=== PATIENT | male | born 1985 ===

== ENCOUNTER 2017-11-07 02:00 | Inpatient (IN) | payer SELFPAY ==
--- NOTE | 2017-11-07 02:50 | C.PDOC ---
History Of Present Illness The patient is brought to the ED by EMS for psychiatric evaluation after he was found acting bizarre and reported auditory hallucinations earlier today. Patient has no physical complaints at this time. Time Seen by Provider: 11/07/17 02:49 Chief Complaint (Nursing): Psychiatric Evaluation History Per: Patient, EMS History/Exam Limitations: no limitations Onset/Duration Of Symptoms: Days (2) Current Symptoms Are (Timing): Still Present Suicide/Self Injury Attempted (Context): None Modifying Factor(s): None Severity: None Pain Scale Rating Of: 0 Associated Symptoms: Other (auditory hallucinations ) Involuntary Hold By: None Recent travel outside of the [place]: No Additional History Per: Patient, EMS Past Medical History Reviewed: Historical Data, Nursing Documentation, Vital Signs Vital Signs: Last Vital Signs Temp 97.9 F 11/07/17 05:18 Pulse 94 H 11/07/17 05:18 Resp 18 11/07/17 05:18 BP 131/81 11/07/17 05:18 Pulse Ox 98 11/07/17 05:18 - Medical History PMH: Schizophrenia Surgical History: No Surg Hx Family History: States: Unknown Family Hx - Social History Hx Alcohol Use: Yes Hx Substance Use: No (denies) - Immunization History Hx Tetanus Toxoid Vaccination: No Hx Influenza Vaccination: No Hx Pneumococcal Vaccination: No Review Of Systems Constitutional: Negative for: Fever, Chills Cardiovascular: Negative for: Chest Pain, Palpitations Respiratory: Negative for: Cough, Shortness of Breath Gastrointestinal: Negative for: Nausea, Vomiting, Abdominal Pain Skin: Negative for: Rash, Lesions, Jaundice, Bruising Neurological: Negative for: Weakness, Numbness Psych: Positive for: Other (auditory hallucinations ) Physical Exam - Physical Exam Appears: Non-toxic, No Acute Distress Skin: Warm, Dry Head: Normacephalic Chest: Symmetrical, No Deformity, No Tenderness Cardiovascular: Rhythm Regular, No Murmur Respiratory: No Accessory Muscle Use Extremity: Normal ROM Neurological/Psych: Oriented x3, Other (bizarre affect ) Gait: Steady ED Course And Treatment - Laboratory Results Result Diagrams: 11/07/17 03:02 11/07/17 03:02 ECG: Interpreted By Me, Viewed By Nv ECG Rhythm: Sinus Rhythm (102), Nonspecific Changes O2 Sat by Pulse Oximetry: 99 (on RA) Pulse Ox Interpretation: Normal - Radiology CXR: Interpreted by Me CXR Interpretation: No: Infiltrates, Fracture, Pnemothorax Progress Note: Bloodwork and UA ordered and reviewed. Disposition Counseled Patient/Family Regarding: Studies Performed, Diagnosis - Disposition Disposition Time: 02:50 Condition: FAIR Forms: [facility] (Maori) - Clinical Impression Clinical Impression: Schizophrenia - Scribe Statement The provider has reviewed the documentation as recorded by the Scribe (Cristy Sanchez) Provider Attestation: All medical record entries made by the Scribe were at my direction and personally dictated by me. I have reviewed the chart and agree that the record accurately reflects my personal performance of the history, physical exam, medical decision making, and the department course for this patient. I have also personally directed, reviewed, and agree with the discharge instructions and disposition. Physician Patient Turnover Patient Signed Over To: Talia Szymanski Handoff Comments: [place] [facility]
[2017-11-07 03:05] LABS: BASO # 0.1 K/uL (0.0-0.2); BASO % 0.5 % (0.0-2.0); EOS % 0.2 % (0.0-4.0); HEMATOCRIT 46.3 % (35.0-51.0); LYMPH # 1.4 K/uL (1.0-4.3); LYMPH % 10.1 % (20.0-40.0); MEAN CELL VOLUME 86.5 fL (80.0-94.0); MEAN CORPUSCULAR HEMOGLOBIN 30.3 pg (27.0-31.0); MEAN PLATELET VOLUME 9.3 fL (7.2-11.7); MONO # 1.1 K/uL (0.0-0.8); MONO % 8.2 % (0.0-10.0); RED CELL DISTRIBUTION WIDTH 12.1 % (11.5-14.5); WHITE BLOOD COUNT 13.5 K/uL (4.8-10.8)
[2017-11-07 03:17] LABS: ALB/GLOB RATIO 1.8 (1.0-2.1); ALCOHOL SERUM < 10 mg/dl (0-10); ALKALINE PHOSPHATASE 59 U/L (38-126); ALT/SGPT 91 U/L (21-72); AST/SGOT 183 U/L (17-59); BILIRUBIN,TOTAL 3.3 mg/dL (0.2-1.3); BLOOD UREA NITROGEN 9 mg/dL (9-20); CALCIUM 8.4 mg/dl (8.6-10.4); CARBON DIOXIDE 23 mmol/L (22-30); CHLORIDE 99 mmol/L (98-107); GFR AFRICAN-AMERICAN > 60; GLUCOSE,RANDOM 97 mg/dL (75-110); POTASSIUM 3.1 mmol/L (3.6-5.2); SODIUM 136 mmol/L (132-148); TOTAL PROTEIN 6.7 g/dL (6.3-8.3)
[2017-11-07 03:30] LABS: RBC URINE 1 /hpf (0-3); URINE BILIRUBIN NEGATIVE (NEGATIVE); URINE BLOOD NEGATIVE (NEGATIVE); URINE COLOR Yellow (YELLOW); URINE GLUCOSE (UA) NORMAL (Normal); URINE KETONE 1+ mg/dL (NEGATIVE); URINE LEUKOCYTE ESTERASE NEG Leu/uL (Negative); URINE PROTEIN 1+ mg/dL (NEGATIVE); URINE UROBILINOGEN NORMAL mg/dL (0.2-1.0); WBC URINE 1 /hpf (0-5)
[2017-11-07] MEDS ORDERED: Potassium Chloride 10 mEq ER Tab PO STA (05:15)
[2017-11-07] MEDS ORDERED: Potassium Chloride 10 mEq ER Tab PO ONE (05:22)
--- NOTE | 2017-11-07 08:25 | RAD ---
Chest x-ray single frontal view History: Psychiatric clearance. Comparison: None available. Findings: Mild patchy increased markings in the right infrahilar region which may represent confluence of vasculature/vessels. Clinical correlation. Heart size within normal limits. Osseous structures are preserved. Impression: Mild patchy increased markings in the right infrahilar region which may represent confluence of vasculature/vessels. Clinical correlation.
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
[2017-11-07] MEDS: Divalproex 500 mg DR Tab PO SCH ×2 (11:45→17:35)
[2017-11-07] MEDS ORDERED: DiphenhydrAMINE 50 mg/ml Inj IM PRN (12:00)
--- NOTE | 2017-11-07 14:19 | PCM.BM ---
<Kirsten Chen - Last Filed: 11/07/17 14:16> Treatment Plan Problems - Problems identified on initial assessmt Problem 1 Date Initiated: 11/07/17 Time Initiated: 14:17 Assessment reference: NA Status: Active Treatment assets and liabiliti Patient Assests: self-reliant, ADL independent, physically healthy Patient Liabilities: financial problems, poor support system, substance abuse - Milieu Protocol Maintain good personal hygiene: daily Encourage regular showers, daily Remind patient to perform daily oral care, daily Assist patient to perform ADL's Maintain personal safety: daily Educate patient to report safety concerns to staff, daily Monitor environment for contraband/sharps Medication safety: Monitor for expected outcome, potential side effects: daily, Assess barriers to learning: daily, Assess readiness for medication education: daily Milieu Narrative: 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 Schizophrenia paranoid type chronic CBT Psychoeducation Supportive therapy, individual therapy Start Haldol 5 mg po BID Start Cogentin 1 mg PO BID Start Depakote 500 mg PO BID Klonopin 1 mg PO TID Start Trazodone 50 mg PO Q HS Cannabis use disorder severe CBT Psychoeducation Supportive therapy, individual therapy Use [place] for abstinence Hallucinogen (Mushroom) use disorder severe CBT Psychoeducation Supportive therapy, individual therapy Use [place] for abstinence Discharge/Continuing Care - Treatment Team Participation Patient/Family/SO Statement: 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 Schizophrenia paranoid type chronic CBT Psychoeducation Supportive therapy, individual therapy Start Haldol 5 mg po BID Start Cogentin 1 mg PO BID Start Depakote 500 mg PO BID Klonopin 1 mg PO TID Start Trazodone 50 mg PO Q HS Cannabis use disorder severe CBT Psychoeducation Supportive therapy, individual therapy Use [place] for abstinence Hallucinogen (Mushroom) use disorder severe CBT Psychoeducation Supportive therapy, individual therapy Use [place] for abstinence <MessiJohnnygretchen - Last Filed: 11/08/17 11:26> - Diagnosis (1) Schizophrenia, paranoid type Status: Acute Interventions: 11/08/17 11:22 * Assess/adjust medications daily and /or as needed * See patient on an individual basis 7x/week to assess status of hallucinations * Discuss risks, benefits, side effects and alternatives of medications * (2) Cannabis use disorder, severe, dependence Status: Acute Interventions: 11/08/17 11:25 * Assess 7x/week regarding severity of withdrawal * Educate regarding risks, benefits, side effects and alternatives of medications * Use Motivational Interviewing for abstinence * Use CBT for relapse prevention * Medication management for withdrawal symptoms * Encourage medication assisted treatment * (3) Hallucinogenic mushrooms use disorder, severe Status: Acute Interventions: 11/08/17 11:26 * Assess 7x/week regarding severity of withdrawal * Educate regarding risks, benefits, side effects and alternatives of medications * Use Motivational Interviewing for abstinence * Use CBT for relapse prevention * Medication management for withdrawal symptoms * Encourage medication assisted treatment *
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
[2017-11-08] MEDS: Divalproex 500 mg DR Tab PO SCH ×2 (09:45→18:00)
--- NOTE | 2017-11-08 10:32 | PCM.PYCHPN ---
Psychiatric Progress Note - Psychiatric Progress Note Patient seen today, length of contact: 16 min Patient Chief Complaint: They are following me.' Problems Identified/Issues Discussed: Patient seen and evaluated, chart reviewed and discussed with the nurse. Patient remained disorganized and internally preoccupied. He still reports of hearing voices. Patient still appears paranoid and delusional. He reports improvement in hs mood, however he remained on 1:1 b/c of paranoid behavior. Patient remained isolated, confined and withdrawn. Patient is compliant with medications and denies any side effects. Symptoms are improving but need more time to stabilize. Support and psychoeducation given. Medication Change: Yes Medical Record Reviewed: Yes Mental Status Examination - Cognitive Function Orientation: Person, Place, Situation, Time Memory: Intact Attention: WNL Concentration: Poor Association: Loose Fund of Knowledge: Poor - Mood Mood: Anxious - Affect Affect: Broad - Speech Speech: Soft - Formal Thought Process Formal Thought Process: Hallucinations, Delusions, Paranoia, Loosening of associations, Flight of ideas, Circumstantial - Suicidal Ideation Suicidal Ideation: No - Homicidal Ideation Homicidal Ideation: No Goal/Treatment Plan - Goal/Treatment Plan Need for Continued Stay: Severe depression anxiety, Severe functional impairment Progress Toward Problem(s) and Goals/Treatment Plan: 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 Schizophrenia paranoid type chronic CBT Psychoeducation Supportive therapy, individual therapy Haldol 5 mg po daily Haldol 10 mg PO QHS Cogentin 1 mg PO BID Depakote 500 mg PO BID Klonopin 1 mg PO TID Trazodone 50 mg PO Q HS Cannabis use disorder severe CBT Psychoeducation Supportive therapy, individual therapy Use [place] for abstinence Hallucinogen (Mushroom) use disorder severe CBT Psychoeducation Supportive therapy, individual therapy Use [place] for abstinence Pt accepted by [facility] screeners for involuntary admission, waiting for bed. - Smoking Cessation Smoking Cessation Initiated: No
[2017-11-08 18:56] VITALS: BP 102/66; PULSE 97; RESP 18; TEMP 98.1; O2SAT 97
--- NOTE | 2017-11-10 09:40 | CARD ---
APPROVED REPORT EKG Measurement Heart [id number] <Conclusion> Sinus tachycardia Possible Left atrial enlargement Borderline ECG
== END 2017-11-08 23:45 | disposition short-term general hospital (02) | DRG 885 ==
LOC: C.ER 02:00 → MERGE 07:18 → C.5E 07:18
PROVIDERS: ADMIT Psychiatry & Neurology Psychiatry; ATTEND Psychiatry & Neurology Psychiatry
PROC: GZ58ZZZ Individual Psychotherapy, Cognitive-Behavioral (ICD-10-PCS; principal; 2017-11-07)
PROC: GZ56ZZZ Individual Psychotherapy, Supportive (ICD-10-PCS; 2017-11-07)
DX: F20.0 Paranoid schizophrenia (principal); F12.20 Cannabis dependence, uncomplicated; Z79.899 Other long term (current) drug therapy

== ENCOUNTER 2018-07-23 17:32 | Emergency (ER) | payer OTHER, MEDICAID ==
[2018-07-23 17:48] VITALS: BP 127/64; PULSE 78; RESP 18; TEMP 98.7; O2SAT 100
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
== END 2018-07-23 18:22 | disposition home or self-care (01) ==
LOC: C.ER 17:32
DX: S16.1XXA Strain of muscle, fascia and tendon at neck level, initial encounter (principal); V49.9XXA Car occupant (driver) (passenger) injured in unspecified traffic accident, initial encounter